=== PATIENT | female | born 1990 | race Caucasian/White ===

== ENCOUNTER 2019-09-30 07:05 | Inpatient (IN) | payer BC ==
[2019-09-30] MEDS ORDERED: Ondansetron PF 4 MG/2 ML Vial IVP PRN ×3 (07:06→15:10)
[2019-09-30] MEDS ORDERED: hydrALAZINE 20 MG/ML VIAL SLOW IVP PRN ×2 (07:06→15:10)
[2019-09-30] MEDS ORDERED: Butorphanol Tartrate 1 MG/ML VIAL SLOW IVP PRN (07:06)
[2019-09-30] MEDS ORDERED: Promethazine HCl 25 MG/ML VIAL IM PRN ×3 (07:06→15:10)
[2019-09-30] MEDS ORDERED: Azithromycin 500 MG in Sodium Chloride 0.9% 250 ML 250 ML IVPB SCH (07:15)
[2019-09-30] MEDS ORDERED: Lactated Ringer's 1,000 ML IV SCH (07:15)
[2019-09-30] MEDS ORDERED: Bicitra 30 ML UDCUP PO SCH (07:15)
[2019-09-30] MEDS ORDERED: CEFAZOLIN 2 GM in Premix Bag 1 BAG IVPB SCH (07:15)
[2019-09-30] MEDS ORDERED: Bicitra 30 ML UDCUP ONE (08:00)
[2019-09-30 08:04] VITALS: BMI 26.2
[2019-09-30 08:06] LABS: Hemoglobin 12.6 g/dL (12.0-16.0); Mean Corpuscular HGB CONC 33.3 g/dL (32.0-36.0); Mean Corpuscular Hemoglobin 30.3 pg (27.0-31.0); Mean Platelet Volume 10.5 fL (7.4-10.4); Platelet Count 170 thou/uL (130-400); RBC Distribution Width 11.6 % (11.5-14.5); Red Blood Cell (RBC) Count 4.18 mill/uL (4.20-5.40); White Blood Cell (WBC) Count 9.3 thou/uL (4.8-10.8)
[2019-09-30] MEDS: Lactated Ringer's 1,000 ML IV SCH ×2 (08:14→15:36)
[2019-09-30] MEDS ORDERED: Azithromycin 500 MG VIAL ONE (08:18)
--- NOTE | 2019-09-30 08:25 | PDOC.LDHP ---
Labor and Delivery H&P Chief complaint: loss of fluid HPI: 28yo at 39w by LMP here with c/o LOF since 6am, clear. Some ctx. Current gestational age (weeks): 39 Due date: 10/03/19 Dating criteria: last menstrual period Grav: 1 Para: 0 Current complications: none Abnormal US findings: No Past Medical History: denies Current medications: pre-derrell vitamins Previous surgical history: other (shoulder surgery, appy, eye surgery) Allergies/Adverse Reactions: Allergies Allergy/AdvReac Type Severity Reaction Status Date / Time No Known Allergies Allergy Verified 09/30/19 08:03 Social history: none - Physical Exam Vital signs reviewed and normal: yes General: NAD Heart: RRR Lungs: CTAB Abdomen: gravid Extremeties: no edema FHT: category 1 Emlyn contractions every: 10min - Vaginal Exam cm dilated: 1 Effacement: 75% Station: -2 - OB Labs RH: positive Antibody Screen: negative HIV: negative RPR: negative HEPSAg: negative 1 hour GCT: negative GBS: positive Rubella: immune - Assessment L&D Assessment: term rupture in membranes - Plan Plan: admit to L&D, to OR for section, informed consent obtained, anesthesia consult for pain management -: breech by sono, for PCS
[2019-09-30 08:42] LABS: Syphilis Antibody Nonreactive (Nonreactive); Syphilis Antibody Index 0.02 S/CO (<1.00 Non-Reactive)
[2019-09-30 08:43] LABS: HBSAg Index 0.17 S/CO (0-0.99); Hep B Surf Ag Non-Reactive S/CO (NonReactive)
[2019-09-30] MEDS ORDERED: Penicillin G Potassium 5 MILL.UNITS VIAL ONE (08:57)
[2019-09-30] MEDS ORDERED: Penicillin G Potassium 5 MILL.UNITS in Sodium Chloride 0.9% 100 ML IVPB SCH (09:00)
[2019-09-30] MEDS ORDERED: MORPHINE 5 MG/10 ML PF VIAL ONE (10:57)
[2019-09-30] MEDS ORDERED: Ketorolac Tromethamine 30 MG/ML VIAL ONE ×2 (10:58→13:36)
[2019-09-30] MEDS ORDERED: Ondansetron PF 4 MG/2 ML Vial ONE (10:58)
[2019-09-30] MEDS ORDERED: PHENYLEPHRINE-NS 100 MCG/ML 10 ML SYRINGE ONE (10:58)
[2019-09-30] MEDS ORDERED: Oxytocin 10 UNITS/ML VIAL ONE (10:58)
[2019-09-30] MEDS ORDERED: EPHEDRINE 25 MG/5 ML SYRINGE ONE (10:58)
[2019-09-30] MEDS ORDERED: Dexamethasone 4 mg/ml Vial ONE (10:58)
[2019-09-30] MEDS ORDERED: diphenhydrAMINE 50 MG/ML VIAL IVP PRN (12:34)
[2019-09-30] MEDS ORDERED: Promethazine HCl 25 MG SUPP PR PRN (12:34)
[2019-09-30] MEDS ORDERED: NS / Oxytocin 40 units/1000ml 1,000 ML ONE (12:34)
[2019-09-30] MEDS ORDERED: HYDROmorphone 2 MG/ML VIAL SLOW IVP PRN (12:34)
[2019-09-30] MEDS ORDERED: Naloxone HCl 0.4 mg/ml Vial IV PRN (12:34)
[2019-09-30] MEDS ORDERED: Meperidine HCl/PF 25 MG/ML VIAL SLOW IVP PRN (12:34)
[2019-09-30] MEDS ORDERED: L&D-Morphine 4 MG/ML VIAL SLOW IVP PRN (12:34)
[2019-09-30] MEDS ORDERED: Naloxone HCl 0.4 mg/ml Vial IVP PRN ×2 (12:34)
[2019-09-30] MEDS ORDERED: Ondansetron HCl/PF 4 MG/2 ML Vial IVP PRN (12:34)
--- NOTE | 2019-09-30 12:38 | PDOC.OPDEL ---
OB Operative/Delivery Note Delivery Dr/Surgeon: Gonzalo Assist: Maddie Pre-Delivery Diagnosis: breech, ruptured membrane Procedure/Post Delivery Dx: primary low transverse CS Weeks gestation: 39 Anesthesia: spinal - Findings A Sex: female - 1 min: 8 - 5 min: 9 - Additional Findings/Plan Placenta delivered: spontaneous findings: low transverse hysterotomy without extension, normal uterus, normal tubes, normal ovaries Estimated blood loss: 400cc Compilations/Other Findings: footling breech, NC x 1 tight Post delivery plan: routine recovery
[2019-09-30] MEDS ORDERED: Ketorolac Tromethamine 30 MG/ML VIAL IVP SCH (12:45)
[2019-09-30] MEDS ORDERED: Communication Order-Pharmacy FS SCH (12:45)
[2019-09-30] MEDS: Ketorolac Tromethamine 30 MG/ML VIAL IVP PRN ×2 (13:40→19:49)
[2019-09-30] MEDS ORDERED: Acetaminophen 325 MG TAB PO PRN (15:10)
--- NOTE | 2019-09-30 19:57 | OP ---
DATE OF PROCEDURE: 09/30/2019 PREOPERATIVE DIAGNOSES: 1. Intrauterine at 39 weeks. 2. Rupture of membranes. 3. Footling breech presentation. POSTOPERATIVE DIAGNOSES: 1. Intrauterine at 39 weeks. 2. Rupture of membranes. 3. Footling breech presentation. PROCEDURE PERFORMED: Primary low-transverse section via Pfannenstiel skin incision. ANESTHESIA: Spinal. MEDICATION COORDINATOR SURGEON: Laurence Perkins PA-C ESTIMATED BLOOD LOSS: 400 mL. COMPLICATIONS: None. DRAINS: Soto catheter. PATHOLOGY: None. FINDINGS: Female in footling breech presentation. Nuchal cord x1 tight. Clear amniotic fluid. Weight is pending. Apgars 8 and 9. Hysterotomy without extension. Normal uterus, ovaries, and tubes bilaterally. DESCRIPTION OF PROCEDURE: The patient was taken to the operating room, where a spinal anesthesia was obtained without difficulty. The patient was prepped and draped in a sterile fashion in a dorsal supine position with a leftward tilt. After ensuring adequacy of anesthesia, a Pfannenstiel skin incision was made and carried down to the underlying subcutaneous tissue with a knife. The fascia was nicked in the midline with the Bovie and carried laterally with the Schulz scissors. The superior aspect of the fascia was tented with 2 Mandy's and dissected off the rectus with the Schulz scissors. The inferior aspect of the fascia was tented with 2 Mandy's and dissected off the rectus down to the pubic symphysis. The rectus was bluntly divided in the midline and the peritoneum was bluntly entered into and manually retracted. The Christian O retractor was placed and the lower uterine segment was incised in a transverse fashion and extended with a Kevin maneuver. The breech was brought to the hysterotomy. A foot was delivered initially and the sacrum was rotated to allow delivery of the other foot and the baby was grasped with a moist towel and delivered up to the scapula. The arms were delivered with a sweeping motion on the anterior chest. The head was then flexed with two fingers on the cheek bones and the head was delivered atraumatically. The was vigorous and delayed cord clamping was performed and cord was clamped and handed to awaiting Ashish team. Cord blood was obtained and the placenta was allowed to spontaneously deliver. The uterus was exteriorized, cleared of all clots and debris, and the posterior cul-de-sac was lapped out and the uterus was placed back into the abdomen and repaired with a #1 Monocryl in a running locking fashion. A second horizontal imbricating layer was also placed. Hemostasis was noted to be excellent. The pelvis was copiously irrigated and suctioned. Hemostasis was again noted. The Christian O retractor was removed. The rectus muscles were examined and noted to be hemostatic. The fascia was reapproximated with 0 PDS x1 suture with excellent reapproximation. The subcutaneous tissue was irrigated and cauterized of any bleeders and reapproximated with a 2-0 plain gut in a running fashion. The skin was closed with a 4-0 Monocryl in a subcuticular fashion. Dermabond was applied as well as a pressure dressing. The patient tolerated the procedure well. Sponge, lap, and needle counts were correct x2. The patient was taken to recovery room in stable condition. The patient received Ancef 2 g and azithromycin 500 mg prior to the procedure. Job ID: [id number]
[2019-09-30] MEDS: diphenhydrAMINE 25 MG CAP PO PRN (22:35)
[2019-10-01] MEDS ORDERED: HYDROcodone/Acetaminophen 5/325 mg Tablet PO PRN (00:45)
[2019-10-01] MEDS: HYDROcodone/Acetaminophen 5/325 mg Tablet PO PRN ×5 (03:05→21:43)
[2019-10-01] MEDS: diphenhydrAMINE 25 MG CAP PO PRN (03:08)
[2019-10-01 06:01] LABS: Hemoglobin 11.7 g/dL (12.0-16.0); Mean Corpuscular HGB CONC 31.6 g/dL (32.0-36.0); Mean Corpuscular Hemoglobin 29.4 pg (27.0-31.0); Mean Corpuscular Volume 93.1 fL (78.0-98.0); Mean Platelet Volume 10.3 fL (7.4-10.4); Platelet Count 154 thou/uL (130-400); RBC Distribution Width 11.7 % (11.5-14.5); Red Blood Cell (RBC) Count 3.98 mill/uL (4.20-5.40); White Blood Cell (WBC) Count 17.2 thou/uL (4.8-10.8)
[2019-10-01] MEDS: Docusate Calcium (SURFAK) 240 MG CAP PO SCH ×2 (08:49→21:43)
[2019-10-01] MEDS: Simethicone Chewable 80 MG TAB PO PRN ×2 (08:56→12:54)
[2019-10-01] MEDS: Prenatal Vitamin 1 TAB PO SCH (08:58)
[2019-10-01] MEDS: Ferrous Sulfate 325 MG TAB PO SCH ×2 (08:58→14:10)
[2019-10-01] MEDS ORDERED: Adacel (T-DAP) 0.5 ML SYRINGE IM ONE (09:00)
[2019-10-01] MEDS: Ibuprofen 800 MG TAB PO SCH ×2 (14:07→21:43)
--- NOTE | 2019-10-01 16:10 | PDOC.PP ---
Post Progress Note Post Day #: 1 PO intake tolerated: yes Flatus: yes Ambulation: yes Vital Signs (12 hours) Temp Pulse Resp BP Pulse Ox 10/01/19 12:00 97.7 F 56 L 18 113/59 L 99 10/01/19 07:38 97.7 F 54 L 20 107/71 98 Weight Weight 158 lb - Physical Examination General: NAD Respiratory: non-labored breathing Abdominal: no distention, appropriately TTP Fundus firm & at: umb-2 Extremities: negative homans (B) Skin: CS incision dry & intact, no rash Neurological: no gross focal deficits Psychiatric: normal affect Result Diagrams: 10/01/19 05:53 Additional Labs: Post Labs Blood Type O POSITIVE 09/30/19 08:30 Hep Bs Antigen Non-Reactive S/CO (NonReactive) 09/30/19 07:55 - Assessment/Plan POD1 s/p PCS for breech VSSAF Hgb wnl postop Meeting appropriate postop milestones Pain controlled Rh pos RImm Cont postop care.
[2019-10-02] MEDS: Ibuprofen 800 MG TAB PO SCH ×3 (05:13→21:48)
[2019-10-02] MEDS: HYDROcodone/Acetaminophen 5/325 mg Tablet PO PRN (05:14)
[2019-10-02] MEDS: Simethicone Chewable 80 MG TAB PO PRN (05:14)
[2019-10-02] MEDS: Ferrous Sulfate 325 MG TAB PO SCH ×2 (08:32→16:06)
[2019-10-02] MEDS: Prenatal Vitamin 1 TAB PO SCH (08:57)
[2019-10-02] MEDS: Docusate Calcium (SURFAK) 240 MG CAP PO SCH ×2 (08:57→21:47)
--- NOTE | 2019-10-02 12:06 | PDOC.PP ---
Post Progress Note Post Day #: 2 PO intake tolerated: yes Flatus: yes Ambulation: yes Vital Signs (12 hours) Temp Pulse Resp BP Pulse Ox 10/02/19 08:09 98.0 F 53 L 20 112/71 98 10/02/19 05:23 98.1 F 70 16 105/76 Weight Weight 158 lb - Physical Examination General: NAD Respiratory: non-labored breathing Abdominal: no distention, appropriately TTP Skin: CS incision dry & intact, no rash Psychiatric: normal affect Result Diagrams: 10/01/19 05:53 Additional Labs: Post Labs Blood Type O POSITIVE 09/30/19 08:30 Hep Bs Antigen Non-Reactive S/CO (NonReactive) 09/30/19 07:55 - Assessment/Plan POD2 s/p PCS VSSAF Ambulate in hallway, heating pad for inc burning. Pain controlled and met other milestones Cont postop care, likely home tomorrow
[2019-10-03] MEDS: Ibuprofen 800 MG TAB PO SCH ×2 (05:16→14:03)
[2019-10-03] MEDS: Ferrous Sulfate 325 MG TAB PO SCH (07:19)
--- NOTE | 2019-10-03 08:21 | PDOC.PP ---
Post Progress Note Post Day #: 3 PO intake tolerated: yes Flatus: yes Ambulation: yes Weight Weight 158 lb - Physical Examination General: NAD Respiratory: non-labored breathing Abdominal: no distention, appropriately TTP Fundus firm & at: umb-2 Skin: CS incision dry & intact, no rash Neurological: no gross focal deficits Psychiatric: normal affect Result Diagrams: 10/01/19 05:53 Additional Labs: Post Labs Blood Type O POSITIVE 09/30/19 08:30 Hep Bs Antigen Non-Reactive S/CO (NonReactive) 09/30/19 07:55 - Assessment/Plan POD3 s/p PCS for breech VSSAF Met all postop milestones s/p LC Rh pos RImm DC home FU 2 wk
[2019-10-03 08:32] VITALS: BP 114/67; TEMP 98.7
[2019-10-03] MEDS: Docusate Calcium (SURFAK) 240 MG CAP PO SCH (09:31)
[2019-10-03] MEDS: Prenatal Vitamin 1 TAB PO SCH (09:31)
[2019-10-03] MEDS: HYDROcodone/Acetaminophen 5/325 mg Tablet PO PRN (09:36)
== END 2019-10-03 16:15 | disposition home or self-care (01) | DRG 788 ==
LOC: L&D 07:05 → UNDOADMIN 07:05 → L&D 07:51 → 3SW 15:09 → EDSTATUS 10-05 13:44
PROVIDERS: ADMIT Student in an Organized Health Care Education/Training Program; ATTEND Student in an Organized Health Care Education/Training Program
PROC: 10D00Z1 Extraction of Products of Conception, Low, Open Approach (ICD-10-PCS; principal; 2019-09-30)
DX: O32.8XX0 Maternal care for other malpresentation of fetus, not applicable or unspecified (principal); Z3A.39 39 weeks gestation of pregnancy; Z37.0 Single live birth; O69.1XX0 Labor and delivery complicated by cord around neck, with compression, not applicable or unspecified
CPT/HCPCS: 36415; 51702; 85027; 86780; 86850; 86900; 86901; 87340; 99285; J0456; J0690; J1100; J1885; J2274; J2405; J2540; J2590; J3490; J7050; Q0163